=== PATIENT | female | born 1990 | race Caucasian/White ===

== ENCOUNTER 2021-03-12 10:38 | Observation (INO) | payer OTHER, SELFPAY ==
[2021-03-12 11:30] VITALS: TEMP 37.1; BMI 42.5
--- NOTE | 2021-03-12 11:30 | OBADM ---
This patient, Brandy Roberson, admitted to the OB room 117 at 1038 for observation for cramping and vaginal pressure. Patient/family oriented to hospital policies and general routines including ID bracelet, bed and alarms, visiting hours, pain management, procedures, bathroom and other care routines, personal items, smoking policy, room service/diet, and visiting hours. Patient/Family are encouraged to report perceived risks to care and to ask questions if they do not understand what they are told or what they should do.
[2021-03-12 11:31] VITALS: BP 108/62; PULSE 100
[2021-03-12 11:32] VITALS: BP 107/70; PULSE 104
[2021-03-12 11:46] VITALS: BP 110/76; PULSE 93
[2021-03-12 11:51] LABS: Add Urine Microscopic? NO; Appearance Urine Clear (Clear); Bilirubin Urine Negative (Negative); Blood Urine Negative (Negative); Color Urine Yellow (Yellow); Glucose Urine UA Negative (Negative); Ketones Urine Negative (Negative); Leukocyte Esterase Ur Negative LEU/UL (Negative); Nitrate Urine Negative (Negative); Protein Urine Negative (Negative); Urobilinogen Urine Negative mg/dL (<2.0)
[2021-03-12 12:01] VITALS: BP 123/78; PULSE 92
[2021-03-12 12:16] VITALS: BP 124/74; PULSE 92
--- NOTE | 2021-03-19 07:44 | PM.OBTRLD ---
OB - Triage/Final Diagnosis Visit Information Reason for evaluation: threatened labor Comments/Additional reasons for admission: I have assessed the risk for this patient, Branyd Susi Parisa Roberson, and determined that she would benefit from observation care. Evaluation Laboratory results: Laboratory Tests 03/12/21 11:40 Urine Color Yellow Urine Appearance Clear Urine pH 6.0 Ur Specific [place] 1.010 Urine Protein Negative Urine Glucose (UA) Negative Urine Ketones Negative Ur Blood (Man) Negative Urine Nitrate Negative Urine Bilirubin Negative Urine Urobilinogen Negative Leukocyte Esterase Rfl Negative
== END 2021-03-12 12:44 | disposition home or self-care (01) ==
PROVIDERS: Admitting Provider Obstetrics & Gynecology; PCP Family Medicine; Visit Provider Obstetrics & Gynecology
DX: O47.9 False labor, unspecified (principal); Z3A.00 Weeks of gestation of pregnancy not specified
CPT/HCPCS: 81003; G0378; G0379